=== PATIENT | female | born 1975 | race Caucasian/White ===

== ENCOUNTER → 2023-02-02 | Outpatient (CLI) | payer OTHER, SELFPAY ==
[2023-02-02] VITALS (7 sets, daily range): BP systolic 106–134; BP diastolic 57–88; PULSE 72–80; RESP 18; TEMP 36.7; O2SAT 95–99; BMI 42.4
--- NOTE | 2023-02-02 12:52 | CT_ITS ---
STUDY: CT CHEST WITHOUT CONTRAST REASON FOR EXAM: Female, 47 years old. SECOND DEGREE AV BLOCK. OVER READ ONLY RADIATION DOSAGE (If Supplied By Facility): CTDIvol = ( 56.52 ) mGy, DLP = ( 2038.60 ) mGycm TECHNIQUE: Transaxial imaging was performed without the administration of intravenous contrast material. Cardiac orbit examination. Individualized dose optimization techniques were used for this CT. COMPARISON: No relevant priors. FINDINGS: CHEST The lungs are normal. There is no demonstrated pleural abnormality. There are calcifications of the coronary arteries. Calcified mediastinal lymph nodes. Calcified left hilar nodes. Calcified granulomas in the left lung. Normal unenhanced pulmonary arteries. Normal aorta arch and descending thoracic aorta. There are degenerative changes of the thoracic spine. Fatty infiltration of the liver. CT/Limited Chest CT Cardiac Only IMPRESSION: Coronary artery calcification. 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 Electronically Signed: Harjit Escobar MD at 12:37 EDT ,
--- NOTE | 2023-02-02 13:29 | RAD.NOTE ---
PT HR IS 78BPM ON ARRIVAL. PT TOOK A HOME METOPROLOL AND IS SITTING. PT HAS PHONE AND AT BEDSIDE.
[2023-02-02] MEDS: Metoprolol Tartrate 5 MG/5 ML Vial IV ×2 (14:18→14:24)
[2023-02-02] MEDS: Nitroglycerin SL (ED/IMG/CATH) 0.4 MG TABLET SL (14:41)
--- NOTE | 2023-02-02 17:03 | CCTA.WCONT ---
CCTA w/Cont Coronary Arteries Date of Study:: 02/02/23 Abnormal stress test The patient was brought to the radiology suite in the postabsorptive nonsedated state. Informed consent was obtained. The patient was administered intravenous contrast agent with beta-blockade for heart rate control. Images were reconstructed and displayed. No coronary artery calcium score was ordered or obtained. LEFT MAIN CORONARY ARTERY: This arose from the left coronary cusp. It bifurcates the left anterior descending artery and left circumflex artery. No significant plaquing was noted in this vessel. [] LEFT ANTERIOR DESCENDING CORONARY ARTERY: The left anterior descending artery had proximal area of calcified plaque as well as soft plaque. This appeared to be nonobstructive but moderate. The vessel had mild diffuse disease. [] LEFT CIRCUMFLEX CORONARY ARTERY: This was a nondominant vessel but appeared to have calcified and noncalcified plaque in a mixed pattern with mild to moderate proximal obstruction noted. An acute marginal branch was noted with mild plaquing present. [] RIGHT CORONARY ARTERY: A focal area of calcified plaque was noted in the proximal region. This vessel arose from the right coronary cusp and then continued bifurcating to posterior descending artery and a small posterolateral vessel. [] THORACIC AORTA: Normal Conclusion: Coronary CTA with suboptimal images due to body habitus and heart rate. Premature coronary calcification noted with moderate plaquing noted in the proximal left anterior descending artery and proximal circumflex artery distributions. []
[2023-02-04 15:39] LABS: CREATININE FINGERSTICK < 0.9 mg/dL (0.55-1.02)
[2023-02-08 07:51] LABS: EGFR FINGERSTICK > 60 mL/min (>60)
== END | disposition home or self-care (01) ==
PROVIDERS: PCP Family Medicine
DX: R94.39 Abnormal result of other cardiovascular function study (principal); I10 Essential (primary) hypertension; I44.1 Atrioventricular block, second degree
CPT/HCPCS: 75574; 76380; Q9967